=== PATIENT | female | born 1990 | race Caucasian/White ===

== ENCOUNTER 2017-12-24 01:43 | Emergency (ER) | payer SELFPAY ==
[~2017-12-24] VITALS: Ht 160 cm; Wt 73.0 kg
[2017-12-24 07:25] VITALS: BP 122/76
== END 2017-12-24 07:28 | disposition home or self-care (01) ==
LOC: ER 01:43
DX: S06.0X0A Concussion without loss of consciousness, initial encounter (principal); S00.03XA Contusion of scalp, initial encounter; Z98.890 Other specified postprocedural states; Y04.0XXA Assault by unarmed brawl or fight, initial encounter; Y93.89 Activity, other specified; Y92.89 Other specified places as the place of occurrence of the external cause
CPT/HCPCS: 70450; 72125; 99284

== ENCOUNTER 2018-09-15 13:38 | Inpatient (IN) | payer SELFPAY ==
[~2018-09-15] VITALS: Ht 160 cm; Wt 91.6 kg
[2018-09-15] MEDS ORDERED: LACTATED RINGERS 1,000 ML IV STA (14:37)
[2018-09-15] MEDS ORDERED: DEXT 5%/LR + PITOCIN 20UNITS/L 1,000 ML IV STA (14:37)
[2018-09-15] MEDS ORDERED: NALOXONE HCL 0.4 MG/ML 1ML VIAL IM PRN (14:45)
[2018-09-15] MEDS ORDERED: RHO(D) IMMUNE GLOBULIN 300 MCG/SYR IM ONE (14:45)
[2018-09-15 14:58] LABS: CLARITY URINE CLOUDY (CLEAR); COLOR URINE AMBER (YELLOW); KETONES URINE TRACE (NEGATIVE); LEUKOCYTE ESTERASE URINE TRACE (NEGATIVE); NITRITE URINE NEGATIVE (NEGATIVE); OCCULT BLOOD URINE 2+ (NEGATIVE); PROTEIN URINE 3+ (NEGATIVE); SPECIFIC GRAVITY URINE 1.022 (1.005-1.030)
[2018-09-15] MEDS ORDERED: FENTANYL CITRATE/PF 50MCG/ML 2ML VIAL ONE (14:59)
[2018-09-15 15:00] LABS: CANNABINOID URINE SCREEN NEGATIVE (NEGATIVE); METHADONE URINE SCREEN NEGATIVE (NEGATIVE); OPIATES URINE SCREEN NEGATIVE (NEGATIVE); PHENCYCLIDINE URINE SCREEN NEGATIVE (NEGATIVE)
[2018-09-15 15:01] LABS: *BARBITURATES SCREEN URINE NEGATIVE (NEGATIVE); *BENZODIAZEPINES SCREEN URINE NEGATIVE (NEGATIVE); *COCAINE SCREEN URINE NEGATIVE (NEGATIVE); CHLORIDE 101 mEq/L (98-107)
[2018-09-15] MEDS ORDERED: MORPHINE SULFATE/PF 1MG/ML 10ML AMP ONE (15:01)
[2018-09-15] MEDS ORDERED: OXYTOCIN 10 UNITS/ML 1ML ONE (15:04)
[2018-09-15] MEDS ORDERED: EPHEDRINE SULFATE 50MG/ML VIAL ONE (15:04)
[2018-09-15] MEDS ORDERED: PHENYLEPHRINE HCL 10 MG/ML 1ML (IV VIAL) IV ONE (15:04)
[2018-09-15] MEDS ORDERED: GLYCOPYRROLATE 0.2 MG/ML 2ML VIAL ONE (15:04)
[2018-09-15 15:09] LABS: INR 0.9; PARTIAL THROMBOPLASTIN TIME 23.3 sec (23.4-31.0)
[2018-09-15 15:11] LABS: *AMPHETAMINES SCREEN URINE PRESUMTIVE POSITIVE (NEGATIVE)
[2018-09-15] MEDS: MAGNESIUM 20 G PREMIX (L & D) 500 ML IV SCH (15:14)
[2018-09-15 15:15] LABS: HEMATOCRIT. 32.7 % (36.0-48.0); HEMOGLOBIN. 10.3 g/dL (12.0-16.0); MEAN CORPUSCULAR HEMOGLOBIN 23.2 pg (28.0-32.0); MEAN CORPUSCULAR VOLUME 73.9 fL (81.0-99.0); MEAN PLATELET VOLUME 10.7 fl (7.4-10.4); PLATELET 281 x1000/uL (130-400); RED BLOOD CELL COUNT 4.43 mill/uL (4.2-5.4); RED CELL DISTRIBUTION WIDTH 16.3 % (11.6-14.6)
[2018-09-15 15:36] LABS: HEPATITIS B SURFACE ANTIGEN NEGATIVE
[2018-09-15 15:53] LABS: PROTHROMBIN TIME 8.8 sec (9.1-11.1)
[2018-09-15] MEDS ORDERED: CEFAZOLIN 2000MG PREMIX 50 ML IV ONE (16:16)
[2018-09-15] MEDS ORDERED: ONDANSETRON HCL 4MG/2ML INJ ONE (16:27)
[2018-09-15] MEDS ORDERED: HYDROCODONE/ACETAMINOPHEN 5/325MG TABLET PO PRN (17:15)
[2018-09-15] MEDS ORDERED: ONDANSETRON HCL 4MG/2ML INJ IV PRN (17:15)
[2018-09-15] MEDS ORDERED: RHO(D) IMMUNE GLOBULIN 300 MCG/SYR IM PRN (17:15)
[2018-09-15 17:26] LABS: NUCLEATED RED BLOOD CELLS 2 /100 WBC; PLATELET ESTIMATE NORMAL
[2018-09-15] MEDS ORDERED: NALOXONE HCL 0.4 MG/ML 1ML VIAL IV PRN (17:30)
[2018-09-15] MEDS ORDERED: BUTORPHANOL TARTRATE 2 MG/ML VIAL IV PRN (17:30)
[2018-09-15] MEDS ORDERED: KETOROLAC 30MG/ML VIAL IV PRN (17:30)
[2018-09-15] MEDS ORDERED: DIPHENHYDRAMINE 50MG/ML VIAL IV PRN (17:30)
[2018-09-15] MEDS: LABETALOL HCL 100MG TABLET PO SCH (21:08)
[2018-09-15 21:45] VITALS: BP 136/80
[2018-09-15 22:45] VITALS: BP 141/85
[2018-09-15 23:45] VITALS: BP 127/80
[2018-09-16] MEDS: MAGNESIUM 20 G PREMIX (L & D) 500 ML IV SCH (00:17)
[2018-09-16 00:45] VITALS: BP 132/83
[2018-09-16 02:00] VITALS: BP 131/75
[2018-09-16 04:00] VITALS: BP 122/80
[2018-09-16] MEDS: DEXT 5%/LR + PITOCIN 20UNITS/L 1,000 ML IV SCH ×2 (04:20→14:00)
[2018-09-16 07:49] VITALS: BP 119/74
[2018-09-16] MEDS: LABETALOL HCL 100MG TABLET PO SCH ×2 (08:48→21:08)
[2018-09-16] MEDS: PRENATAL VIT/FE FUMARATE/FA TABLET PO SCH (08:48)
[2018-09-16 09:25] LABS: BASOPHILS % 0.3 % (0.0-2.0); EOSINOPHILS % 0.1 % (0.0-5.0); HEMATOCRIT. 23.9 % (36.0-48.0); HEMOGLOBIN. 7.5 g/dL (12.0-16.0); LYMPHOCYTES % 16.6 % (20.0-50.0); MEAN CORPUSCULAR HEMOGLOBIN 23.3 pg (28.0-32.0); MEAN CORPUSCULAR VOLUME 74.2 fL (81.0-99.0); MEAN PLATELET VOLUME 10.4 fl (7.4-10.4); MONOCYTES % 3.9 % (2.0-8.0); NEUTROPHILS % 79.1 % (40.0-76.0); PLATELET 246 x1000/uL (130-400); RED BLOOD CELL COUNT 3.22 mill/uL (4.2-5.4); RED CELL DISTRIBUTION WIDTH 16.5 % (11.6-14.6)
[2018-09-16 09:31] LABS: CHLORIDE 98 mEq/L (98-107)
[2018-09-16 15:54] VITALS: BP 134/86
[2018-09-16] MEDS: HYDROCODONE/ACETAMINOPHEN 5/325MG TABLET PO PRN ×3 (17:18→21:08)
[2018-09-16 20:00] VITALS: BP 127/75
[2018-09-17] VITALS (8 sets, daily range): BP systolic 122–155; BP diastolic 70–89
[2018-09-17] MEDS ORDERED: DIPHENHYDRAMINE 25MG CAPSULE PO PRN (02:30)
[2018-09-17] MEDS: HYDROCODONE/ACETAMINOPHEN 5/325MG TABLET PO PRN (04:38)
[2018-09-17] MEDS: IBUPROFEN 400MG TABLET PO PRN ×2 (08:51→20:07)
[2018-09-17] MEDS: PRENATAL VIT/FE FUMARATE/FA TABLET PO SCH (08:51)
[2018-09-17] MEDS: LABETALOL HCL 100MG TABLET PO SCH ×2 (08:51→21:02)
[2018-09-17] MEDS ORDERED: TETANUS, DIPHTHERIA, PERTUSSIS VAC/PF 0.5ML (>7YR OLD) IM ONE (10:00)
[2018-09-17] MEDS ORDERED: BISACODYL 10MG SUPP PR PRN (10:45)
[2018-09-17] MEDS ORDERED: MEDROXYPROGESTERONE ACETATE 150MG/ML VIAL IM NR (17:30)
[2018-09-18] VITALS: BP 138/86
[2018-09-18 04:00] VITALS: BP 112/73
[2018-09-18] MEDS: PRENATAL VIT/FE FUMARATE/FA TABLET PO SCH (08:25)
[2018-09-18] MEDS: LABETALOL HCL 100MG TABLET PO SCH (08:26)
[2018-09-18 08:30] VITALS: BP_SYST 69
[2018-09-20 19:11] LABS: AMPHETAMINE CONF URINE Positive (.)
== END 2018-09-18 11:00 | disposition home or self-care (01) | DRG 540 ==
LOC: OBSVTOIN 13:38 → L&D 13:38 → 7EST PP/OB 21:25
PROVIDERS: ADMIT Obstetrics & Gynecology; ATTEND Obstetrics & Gynecology
PROC: 10D00Z1 Extraction of Products of Conception, Low, Open Approach (ICD-10-PCS; principal; 2018-09-15 17:09)
DX: O42.913 Preterm premature rupture of membranes, unspecified as to length of time between rupture and onset of labor, third trimester (principal); D62 Acute posthemorrhagic anemia; O99.324 Drug use complicating childbirth; O13.4 Gestational [pregnancy-induced] hypertension without significant proteinuria, complicating childbirth; O34.211 Maternal care for low transverse scar from previous cesarean delivery; F15.10 Other stimulant abuse, uncomplicated; O62.4 Hypertonic, incoordinate, and prolonged uterine contractions; O77.0 Labor and delivery complicated by meconium in amniotic fluid; O99.02 Anemia complicating childbirth; Z37.0 Single live birth; Z3A.34 34 weeks gestation of pregnancy
CPT/HCPCS: 36415; 80305; 80307; 83735; 84550; 85384; 86592; 86703; 86762; 86850; 86900; 87340; 88307; J0690; J1050; J1200; J1885; J2274; J2370; J2405; J2590; J3010; J3475; J3490; J7120